=== PATIENT | female | born 1955 | race Hispanic/Latino ===

== ENCOUNTER 2022-05-13 10:11 | Emergency (ER) | payer MEDICARE ==
--- NOTE | 2022-05-13 11:35 | RAD REPORT ---
EXAM DESCRIPTION: CT - Head C Spine Cap Bolivar Jarrell - 05/13/2022 11:19 am CLINICAL HISTORY: Trauma, head and neck injury. Chest, abdomen and pelvis pain. fall, headache, neck pain, back pain, abdominal pain COMPARISON: No comparisons TECHNIQUE: CT head without contrast. CT cervical spine without contrast with coronal and sagittal reformatted images. CT chest, abdomen and pelvis with IV contrast (approximately 100 mL nonionic IV contrast) with shaikh l and sagittal reformatted images of the spine. All CT scans are performed using dose optimization technique as appropriate and may include automated exposure control or mA/KV adjustment according to patient size. FINDINGS: CT HEAD WITHOUT CONTRAST: No intracranial hemorrhage, hydrocephalus or extra-axial fluid collection. Areas of diminished densit y posterior right frontal lobe noted old/chronic appearance. This may be related to previous trauma o r infarct. No areas of brain edema or midline shift. The paranasal sinuses and mastoids are clear. The calvarium is intact. CT CERVICAL SPINE WITHOUT CONTRAST: No fracture or subluxation. Mild lower cervical degenerative changes. The prevertebral soft tissues a re normal in thickness. CT CHEST, ABDOMEN, PELVIS WITH CONTRAST: The lungs are clear.No pneumothorax or pericardial/pleural fluid. No evidence of intra-abdominal visceral injury, free fluid or free air. No concerning pelvic findings. Moderate multilevel lumbar degenerative changes. No fractures. IMPRESSION: Negative for acute traumatic findings.
--- NOTE | 2022-05-13 11:49 | EDPHYS ---
Physician Documentation [facility] Name: Carmelita Blair Age: 66 yrs Sex: Female : 1955 Arrival Date: 05/13/2022 Time: 10:14 Bed 17 Private MD: ED Physician Horace Zhao HPI: 05/13 10:18 This 66 yrs old Female presents to ER via EMS with complaints of Fall Injury. jmm 10:18 Details of fall: The patient fell from an upright position, while walking. Onset: The jmm symptoms/episode began/occurred acutely, just prior to arrival. This is a 66-year-old female with history of hypertension the presents emerged from with complaints of headache, neck pain, lower back pain, lower abdominal pain following a fall which occurred just prior to arrival. Patient states falling backwards hitting her head against a wall. Also complains of bilateral shoulder pain as well.. Historical: - Allergies: 10:22 Codeine; ss - PMHx: 10:22 Hypertensive disorder; ss - Immunization history:: Client reports receiving the 2nd dose of the Covid vaccine. - Social history:: Smoking status: Patient denies any tobacco usage or history of. ROS: 10:18 Constitutional: Negative for fever, chills, and weight loss, Cardiovascular: Negative jmm for chest pain, palpitations, and edema, Respiratory: Negative for shortness of breath, cough, wheezing, and pleuritic chest pain. 10:18 Neck: Positive for pain with movement. 10:18 Back: Positive for pain with movement. 10:18 Neuro: Positive for headache. 10:18 All other systems are negative. Exam: 10:18 Eyes: EOMI, no conjunctival erythema appreciated ENT: Moist Mucus Membranes jmm 10:18 Cardiovascular: Regular rate and rhythm. No edema appreciated Respiratory: Normal respirations, no respiratory distress appreciated Abdomen/GI: Non distended Skin: General appearance color normal 10:18 Constitutional: The patient appears alert, awake, anxious. 10:18 Head/face: Noted is tenderness, that is moderate, of the left occipital area and right occipital area. 10:18 Neck: C-spine: C-collar placed [employer]. 10:18 Chest/axilla: Inspection: normal, Palpation: tenderness, that is mild, of the anterior aspect of right upper chest and anterior aspect of left upper chest. 10:18 Cardiovascular: Rate: normal, Rhythm: regular. 10:18 Respiratory: the patient does not display signs of respiratory distress, Respirations: normal, Breath sounds: are clear throughout. 10:18 Abdomen/GI: Inspection: abdomen appears normal, Bowel sounds: normal, Palpation: soft, mild abdominal tenderness, in the right lower quadrant and left lower quadrant. 10:18 Back: pain, that is moderate, of the lumbar area, left low back and right low back. 10:18 Musculoskeletal/extremity: ROM: intact in all extremities, Mild pain appreciated to the right and left anterior shoulder, no obvious deformity appreciated, full range of motion appreciated, compartments are soft, neurovascular intact. 10:18 Skin: Appearance: Color: normal in color. 10:18 Neuro: Orientation: is normal, Mentation: is normal, Memory: is normal. 10:18 Psych: Behavior/mood is pleasant, cooperative. Vital Signs: 10:15 Weight 99.79 kg; Height 5 ft. 6 in. (167.64 cm); Pain 8/10; ss 10:18 BP 156 / 75; Pulse 99; Resp 18; Temp 98.3; Pulse Ox 97% on R/A; tm3 11:34 BP 156 / 75; Pulse 70; Resp 18; Pulse Ox 97% on R/A; tm3 12:08 BP 166 / 79; Pulse 66; Resp 16; Pulse Ox 100% on R/A; Pain 4/10; bm7 10:15 Body Mass Index 35.51 (99.79 kg, 167.64 cm) ss [place] Coma Score: 10:15 Eye Response: spontaneous(4). Verbal Response: oriented(5). Motor Response: obeys ss commands(6). Total: 15. Trauma Score (Adult): 10:15 Eye Response: spontaneous(1); Verbal Response: oriented(1); Motor Response: obeys ss commands(2); Systolic BP: > 89 mm Hg(4); Respiratory Rate: 10 to 29 per min(4); [place] Score: 15; Trauma Score: 12 MDM: 10:18 Patient medically screened. lydia 11:46 Data reviewed: vital signs, nurses notes. Counseling: I had a detailed discussion with lydia the patient and/or guardian regarding: the historical points, exam findings, and any diagnostic results supporting the discharge/admit diagnosis, radiology results, the need for outpatient follow up, to return to the emergency department if symptoms worsen or persist or if there are any questions or concerns that arise at home. ED course: Patient is alert and non toxic in appearance in the ED. CT is negative for an acute process. Patient advised to follow up with pcp and otherwise given strict return precautions. patient understood and agrees with the plan of care. 05/13 10:19 Order name: CT Traumagram (Head C Spine CAP W Con); Complete Time: 11:37 [facility] 05/13 10:19 Order name: Saline Lock; Complete Time: 10:40 [facility] 05/13 10:24 Order name: Misc. Order: green top for cT; Complete Time: 10:47 ss Administered Medications: 12:07 Drug: Ketorolac 30 mg Route: IVP; Site: left antecubital; bm7 12:15 Follow up: Response: Pain is decreased bm7 Disposition Summary: 05/13/22 11:49 Discharge Ordered Location: Home [facility] Condition: Stable [facility] Diagnosis - Unspecified injury of head, initial encounter [facility] - Strain of muscle, fascia and tendon of lower back [facility] Followup: [facility] - With: Private Physician - When: 2 - 3 days - Reason: Recheck today's complaints, Continuance of care, Re-evaluation by your physician Discharge Instructions: - Discharge Summary Sheet [facility] - Head Injury, Adult jm - Low Back Sprain or Strain Rehab-SportsMed [facility] Forms: - Work release form [facility] - Medication Reconciliation Form [facility] - Thank You Letter [facility] - Antibiotic Education [facility] - Prescription Opioid Use [facility] Prescriptions: - Diclofenac Sodium 75 mg Oral Tablet Sustained Release - take 1 tablet by ORAL route 2 times per day; 30 tablet; Refills: 0, Product [facility] Selection Permitted - orphenadrine citrate 100 mg Oral Tablet Sustained Release - take 1 tablet by ORAL route 2 times per day As needed; 20 tablet; Refills: 0, [facility] Product Selection Permitted Signatures: Dispatcher [employer] EDMS Zaire Angelo PA PA jmm Smirch, Shelby RN RN ss Radha Santiago RN RN bm7
--- NOTE | 2022-05-13 11:49 | ER ---
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 Also c/o bilateral upper arm pain. Care prior to arrival: Cervical collar in place. Mechanism of Injury: SEE TRIAGE ASSESSMENT. Trauma event details: Injury occurred in the [facility], Injury occurred: work. 10:15 Acuity: GIRMA 4 ss 10:15 Method Of Arrival: EMS: [facility] ss 10:15 Coronavirus screen: Client denies travel out of the [place] in the last 14 days. Ebola ss Screen: Patient denies exposure to infectious person. Patient denies travel to an Ebola-affected area in the 21 days before illness onset. Initial Sepsis Screen: Does the patient meet any 2 criteria? No. Patient's initial sepsis screen is negative. Does the patient have a suspected source of infection? No. Patient's initial sepsis screen is negative. Risk Assessment: Do you want to hurt yourself or someone else? Patient reports no desire to harm self or others. Onset of symptoms was May 13, 2022. Trauma Activation: Alert Physician: ED Physician; Name: ; Notified At: ; Arrived At: Physician: General Surgeon; Name: ; Notified At: ; Arrived At: Physician: Radiology; Name: ; Notified At: ; Arrived At: Physician: Respiratory; Name: ; Notified At: ; Arrived At: Physician: Lab; Name: ; Notified At: ; Arrived At: Historical: - Allergies: 10:22 Codeine; ss - PMHx: 10:22 Hypertensive disorder; ss - Immunization history:: Client reports receiving the 2nd dose of the Covid vaccine. - Social history:: Smoking status: Patient denies any tobacco usage or history of. Screenin:15 Abuse screen: Denies threats or abuse. Denies injuries from another. Tuberculosis ss screening: Never had TB. 12:08 Nutritional screening: No deficits noted. Fall Risk Fall in past 12 months (25 points). bm7 Primary Survey: 10:15 NO uncontrolled hemorrhage observed. A: The client is awake and alert. The airway is ss patent. The client is alert. Airway: patent, No supplemental oxygen in use on arrival. Oral cavity: clear, Trachea midline. Breathing/Chest: Spontaneous respiratory effort, equal unlabored respirations, breath sounds clear bilaterally, regular pattern, symmetrical chest rise and fall. Respiratory effort: spontaneous, unlabored, Breath sounds: clear, Respiratory pattern: regular, Chest inspection: symmetrical rise and fall of the chest. Circulation: No external hemorrhage present. Regular and strong central pulse, skin warm/dry/normal color. Disability Client is alert. Exposure/Environment: All clothing and personal items were removed. Forensic evidence collection is not deemed to be indicated at this time. Items placed in patient belonging bag. There is no evidence of uncontrolled external bleeding. A warming method has been applied: A warm blanket has been provided to the patient. Secondary Survey: 10:15 HEENT: No deficits noted. Head No injury/deformity Face No injury/deformity Eyes: No ss injury or deformity noted. Ears: clear Nose: clear Throat: No injury or deformity noted. : No deficits noted. Musculoskeletal: Circulation, motion, and sensation intact. Range of motion: intact in all extremities, Swelling absent Reports pain to neck, back and bilateral arms, L leg. Assessment: 12:08 General: Appears in no apparent distress. uncomfortable. Pain: Complains of pain in bm7 back. Neuro: No deficits noted. Cardiovascular: No deficits noted. Respiratory: No deficits noted. GI: No deficits noted. No signs and/or symptoms were reported involving the gastrointestinal system. : No deficits noted. No signs and/or symptoms were reported regarding the genitourinary system. EENT: No deficits noted. No signs and/or symptoms were reported regarding the EENT system. Derm: No deficits noted. No signs and/or symptoms reported regarding the dermatologic system. Musculoskeletal: Reports pain in back. Vital Signs: 10:15 Weight 99.79 kg; Height 5 ft. 6 in. (167.64 cm); Pain 8/10; ss 10:18 BP 156 / 75; Pulse 99; Resp 18; Temp 98.3; Pulse Ox 97% on R/A; tm3 11:34 BP 156 / 75; Pulse 70; Resp 18; Pulse Ox 97% on R/A; tm3 12:08 BP 166 / 79; Pulse 66; Resp 16; Pulse Ox 100% on R/A; Pain 4/10; bm7 10:15 Body Mass Index 35.51 (99.79 kg, 167.64 cm) ss [place] Coma Score: 10:15 Eye Response: spontaneous(4). Verbal Response: oriented(5). Motor Response: obeys ss commands(6). Total: 15. Trauma Score (Adult): 10:15 Eye Response: spontaneous(1); Verbal Response: oriented(1); Motor Response: obeys ss commands(2); Systolic BP: > 89 mm Hg(4); Respiratory Rate: 10 to 29 per min(4); [place] Score: 15; Trauma Score: 12 ED Course: 10:14 Patient arrived in ED. ss 10:15 Patient has correct armband on for positive identification. ss 10:16 Triage completed. ss 10:17 Zaire Angelo PA is PHCP. [facility] 10:17 Horace Zhao MD is Attending Physician. jmm 10:22 Arm band placed on right wrist. ss 10:37 Missed attempt(s): 20 gauge in right forearm. Bleeding controlled, band aid applied, dh3 catheter tip intact. 10:40 Inserted saline lock: 20 gauge in left forearm, using aseptic technique. dh3 11:21 CT Traumagram (Head C Spine CAP W Con) In Process Unspecified. EDMS 11:58 Radha Santiago, RN is Primary Nurse. bm7 12:08 Client placed on continuous cardiac and pulse oximetry monitoring. NIBP monitoring bm7 applied. Repositioned patient. 12:08 No provider procedures requiring assistance completed. intact, bleeding controlled, No bm7 redness/swelling at site. Pressure dressing applied. Administered Medications: 12:07 Drug: Ketorolac 30 mg Route: IVP; Site: left antecubital; bm7 12:15 Follow up: Response: Pain is decreased bm7 Medication: 12:08 VIS not applicable for this client. bm7 Outcome: 11:49 Discharge ordered by . jmm 12:15 Discharged to home via wheelchair, with family. bm7 12:15 Condition: improved 12:15 Discharge instructions given to patient, family, Instructed on discharge instructions, follow up and referral plans. medication usage, Demonstrated understanding of instructions, follow-up care, medications, Prescriptions given X 2. 12:15 Patient left the ED. bm7 Signatures: Dispatcher [employer] EDChaparro Cobb 3 Zaire Angelo PA PA jmm Smirch, Shelby, WAYNE RN Jessie Montejo [facility] Radha Santiago, WAYNE RN bm7 Corrections: (The following items were deleted from the chart) 10:24 10:15 Care prior to arrival: None. [facility]
[2022-05-13] MEDS ORDERED: KETOROLAC 30 MG/ML INJ ONE (12:08)
[2022-05-13 12:55] VITALS: TEMP 98.3
[2022-05-13 13:13] VITALS: BP 166/79; O2SAT 100
== END 2022-05-13 12:15 | disposition home or self-care (01) ==
LOC: ER 10:11
DX: S09.90XA Unspecified injury of head, initial encounter (principal); S39.012A Strain of muscle, fascia and tendon of lower back, initial encounter; I10 Essential (primary) hypertension; Z88.5 Allergy status to narcotic agent
CPT/HCPCS: 82565; 70450; 72125; 71260; 74177; 96374; 99284; Q9967